=== PATIENT | female | born 1950 | race Caucasian/White ===

== ENCOUNTER 2017-04-20 10:28 | Outpatient (CLI) | payer MEDICARE | END 2017-04-20 10:29 | disposition home or self-care (01) | LOC: BICMAMMO 10:28 | PROVIDERS: ATTEND Internal Medicine | DX: Z12.31 Encounter for screening mammogram for malignant neoplasm of breast (principal); R92.1 Mammographic calcification found on diagnostic imaging of breast | CPT/HCPCS: 77063; 77067 ==

== ENCOUNTER 2018-02-21 13:20 | Observation (INO) | payer MEDICARE ==
[2018-02-21] MEDS ORDERED: Aspirin 325 MG TAB ONE (13:50)
[2018-02-21 14:04] LABS: #Basophils 0.1 thou/uL (0.0-0.2); #Eosinphils 0.2 thou/uL (0.0-0.7); #Lymphocytes 2.9 thou/uL (1.20-3.40); #Monocytes 0.6 thou/uL (0.11-0.59); %Basophils 0.8 % (0.0-1.0); %Eosinophils 1.4 % (0.0-10.0); %Lymphocytes 27.2 % (21.0-51.0); %Monocytes 5.5 % (0.0-10.0); %Neutrophils 65.1 % (42.0-75.0); Hemoglobin 13.4 g/dL (12.0-16.0); Mean Corpuscular HGB CONC 32.2 g/dL (32.0-36.0); Mean Corpuscular Hemoglobin 29.3 pg (27.0-31.0); Mean Platelet Volume 9.2 fL (7.4-10.4); Platelet Count 209 thou/uL (130-400); RBC Distribution Width 13.2 % (11.5-14.5); Red Blood Cell (RBC) Count 4.58 mill/uL (4.20-5.40); White Blood Cell (WBC) Count 10.7 thou/uL (4.8-10.8)
[2018-02-21 14:30] LABS: ALT (SGPT) 11 U/L (8-55); AST (SGOT) 13 U/L (5-34); Albumin 3.9 g/dL (3.4-4.8); Alkaline Phosphatase 107 U/L (40-150); Anion Gap 13 mmol/L (10-20); BUN (Urea Nitrogen) 16 mg/dL (9.8-20.1); CK (CPK) 20 U/L (29-168); Calc. Creatinine Clearance 0 mL/min (70-130); Calcium 10.5 mg/dL (7.8-10.44); Carbon Dioxide 25 mmol/L (23-31); Chloride 104 mmol/L (98-107); Estimated GFR-MDRD 51; Globulin 3.3 g/dL (2.4-3.5); Glucose 102 mg/dL (80-115); Potassium 3.9 mmol/L (3.5-5.1); Protein, Total 7.2 g/dL (6.0-8.3); Sodium 138 mmol/L (136-145)
--- NOTE | 2018-02-21 14:41 | RAD ---
CHEST ONE VIEW: HISTORY: Chest pain, which began at 12:00 p.m. COMPARISON: 04/26/2016 FINDINGS: Increased linear and interstitial markings noted bilaterally, particularly in the perihilar and lower lung zones. No cardiomegaly. No significant pleural effusion. No confluent pneumonia. Slightly p rominent left hilar region, probably related to rotation and pulmonary vasculature. IMPRESSION: 1. Mild vascular congestion. 2. No confluent pneumonia, overt edema, pleural effusion, cardiomegaly, or other significant acute p rocess. POS: OFF
[2018-02-21 17:14] LABS: Troponin I Less than 0.010 ng/mL (< 0.028)
[2018-02-21 18:37] VITALS: BMI 43.6
[2018-02-21] MEDS: Nitroglycerin 2% Ointment 1 INCH/1 GM Packet TOP SCH (19:28)
[2018-02-21 19:49] LABS: Troponin I Less than 0.010 ng/mL (< 0.028)
[2018-02-21] MEDS: Morphine IR Tab 15 MG TAB PO PRN (21:27)
[2018-02-21] MEDS: Gabapentin 300 MG CAP PO SCH (21:27)
--- NOTE | 2018-02-22 00:26 | HP ---
PRIMARY CARE PHYSICIAN: Dr. Fortune. PAIN MANAGEMENT: Dr. Wagner. ORTHOPEDIST: Dr. Jaramillo. CHIEF COMPLAINT: Chest pain. HISTORY OF PRESENT ILLNESS: Ms. Samuel is a very pleasant 67-year-old female who presented to the emergency room today. The patient evaluated in the emergency room for chest pain. This started at around noon. She said it lasted about an hour. Reports the pain had radiated to her back. Reports that she has chronic back pain and this particular chest pain made that pain worse. Reports some mild shortness of breath. Denies any diaphoresis. Denied any radiation. Reports that the pain was primarily on the left side of her chest. Denies any nausea or vomiting. Denies any abdominal pain, diarrhea, or constipation. Reports that the pain was relieved by nitroglycerin. Reports that she had a cardiac cath performed in 2012 in [place]. Reports that she had no evidence at that point of any coronary artery disease and no stents were placed. Reports that she may have had an echo at that time, but none since then. PAST MEDICAL HISTORY: Includes hypertension, diabetes, sarcoidosis, cataracts, plantar fasciitis. The patient was admitted to the observation unit for further management. PAST SURGICAL HISTORY: Tonsillectomy, cholecystectomy, hysterectomy, right wrist surgery x3, ankle surgery, rotator cuff surgery, sinus surgery. She also reports that she saw Dr. Jaramillo this week with a discussion about possible knee replacement. PSYCHIATRIC HISTORY: Reports depression and anxiety. SOCIAL HISTORY: Reports that she has no alcohol use, drug use. No smoking history. FAMILY HISTORY: Reports family of cardiac issues. REVIEW OF SYSTEMS: CONSTITUTIONAL: The patient denies chills, fatigue, fever, or lethargy. HEENT: Eyes; denies any eye pain or vision changes. ENT; denies sinus pain, sore throat. CARDIOVASCULAR: Reports chest pain. Denies palpitations. Denies diaphoresis. Denies dyspnea on exertion. RESPIRATORY: Denies cough. Reported some mild shortness of breath with the chest pain. Reports it was hard to take a deep breath, otherwise negative. GASTROINTESTINAL: Denies any abdominal pain. Reported some nausea earlier that has resolved. Denies any vomiting, diarrhea, or constipation. GENITOURINARY: Denies any increased frequency, dysuria. MUSCULOSKELETAL: She reports chronic back pain. She sees Dr. Wagner for injections and pain medications. Denies any recent falls or injuries. Denies any changes to the back pain. SKIN: Denies induration. Denies rash. Denies skin changes. NEUROLOGIC: Denies any confusion, dizziness, focal weakness, sensory changes. PHYSICAL EXAMINATION: VITAL SIGNS: Blood pressure 147/76, pulse is 73, respirations 16, temperature 97.7, pO2 of 95% on room air. CONSTITUTIONAL: The patient appears nontoxic. HEENT: Head is atraumatic and normocephalic. Eyes; pupils are equally round and reactive to light. Sclerae is normal. ENT; mouth exam is normal. Mucous membranes are moist. NECK: Trachea is midline. Normal range of motion. No JVD. RESPIRATORY/CHEST: Breath sounds are normal. Chest expansion is equal. CARDIOVASCULAR: Heart rate is regular rate and rhythm. Heart sounds are normal S1, S2. ABDOMEN: Nontender. Bowel sounds are heard. BACK: Normal inspection. Normal range of motion. Diffuse tenderness. No CVA tenderness. EXTREMITIES: Upper extremity, normal range of motion. Motor strength is normal. Sensation intact. Radial pulses equal bilaterally. Lower extremity, normal inspection. Normal range of motion. Motor strength is normal. Sensation intact. Pedal pulses normal bilaterally. No edema is noted. NEUROLOGIC: The patient is oriented to person, place, and time. Speech is normal. Memory is normal. Cranial nerves 2 through 12 are grossly intact. No focal sensory or motor deficits are noted. SKIN: Warm, dry, and normal in color. ALLERGIES: EXTENSIVE; THEY INCLUDE PENICILLINS, CEPHALOSPORINS, IODINE, FLUOROQUINOLONES, SULFA, MENTHOL, MERCURY. CURRENT MEDICATIONS: Include; 1. Gabapentin 600 mg 3 times a day. 2. Morphine 30 mg 3 times a day for chronic pain. 3. Clonazepam 0.5 mg 1 tab t.i.d. as needed. EKG while in the ER was normal sinus rhythm, beats per minute 73, no ectopics. Possible septal infarct, age undetermined. LABS AND IMAGING: Chest x-ray shows mild vascular congestion. No confluent pneumonia or edema, pleural effusion, cardiomegaly, or other significant acute process. CK is 20. Sodium 138, potassium 3.9, chloride 104, gap is 13, BUN is 16, creatinine 1.08, estimated GFR is 51, glucose is 102, calcium 10.5. Liver enzymes are unremarkable. First troponin is undetectable at 0.010. White blood cell count is 10.7, hemoglobin 13.4, hematocrit 41.7, platelet count is 209. ASSESSMENT AND PLAN: 1. Chest pain. We will order serial troponins, stress test. 2. Chronic pain. We will continue home medications. Hospital course will be dependent on clinical findings. Job ID: [id number]
[2018-02-22] MEDS: Nitroglycerin 2% Ointment 1 INCH/1 GM Packet TOP SCH (00:27)
[2018-02-22] MEDS: Gabapentin 300 MG CAP PO SCH ×2 (06:00→12:43)
[2018-02-22] MEDS: Morphine IR Tab 15 MG TAB PO PRN (07:40)
[2018-02-22] MEDS ORDERED: Prevnar 13-Val Conj/PF 0.5 ML SYRINGE IM ONE (09:00)
[2018-02-22] MEDS ORDERED: Aspirin 81 mg Enteric Coated Tablet PO SCH (09:00)
[2018-02-22 12:34] VITALS: BP 137/72; TEMP 98.4
--- NOTE | 2018-02-22 13:49 | PDOC.EVN ---
Event Note - Event Note Event Note: patient seen, chart reviewed, discussed with Rohit ANSARI, agree with management
--- NOTE | 2018-02-22 14:13 | NM ---
NUCLEAR MEDICINE CARDIAC SPECT WITH WALL MOTION AND EJECTION FRACTION STRESS ONLY: HISTORY: Chest pain. Hypertension. Diabetes. Family history of coronary artery disease. TECHNIQUE: The patient was injected with 29.3 millicuries technetium 99m sestamibi intravenously for stress only views. FINDINGS: Multiple SPECT images in the short axis, vertical long axis, and horizontal long axis demonstrate no scan evidence for infarct or ischemia. LHR 0.28. EDV 102 mL. Ejection fraction 67%. MYOCARDIAL PERFUSION WALL MOTION: Wall motion is normal. IMPRESSION: Unremarkable stress only cardiac SPECT with ejection fraction and wall motion. POS: [facility]
--- NOTE | 2018-02-23 14:32 | EKG ---
Test Reason : Blood Pressure : / mmHG Vent. Rate : 073 BPM Atrial Rate : 227 BPM P-R Int : 000 ms QRS Dur : 080 ms QT Int : 390 ms P-R-T Axes : 000 024 -38 degrees QTc Int : 429 ms Normal sinus rhythm Septal infarct , age undetermined Abnormal ECG Confirmed by GERMAN PEREZ, JESUSITA Abebe ([id number]), marketing editor GOVIND JENKINS ([id number]) on 02/23/2018 2:32:37 PM Referred By: Confirmed By:JESUSITA PORTER MD
== END 2018-02-22 15:19 | disposition home or self-care (01) ==
LOC: ERS 13:20 → ERHOLD 15:07 → 2SW 17:35 → UNDODISOB 18:00
PROVIDERS: ADMIT Internal Medicine; ATTEND Internal Medicine
DX: R07.9 Chest pain, unspecified (principal); G89.29 Other chronic pain; M54.9 Dorsalgia, unspecified; I10 Essential (primary) hypertension; F32.9 Major depressive disorder, single episode, unspecified; F41.9 Anxiety disorder, unspecified; Z88.0 Allergy status to penicillin; Z88.1 Allergy status to other antibiotic agents; Z88.2 Allergy status to sulfonamides; Z91.041 Radiographic dye allergy status; Z91.048 Other nonmedicinal substance allergy status; Z79.82 Long term (current) use of aspirin; Z79.891 Long term (current) use of opiate analgesic; Z79.899 Other long term (current) drug therapy
CPT/HCPCS: 71045; 78452; 80053; 82550; 82962 ×2; 83880; 84484 ×2; 85025; 93005; 93017; 99285; A9500; G0378 ×2; 36415; 36416; J0153

== ENCOUNTER 2018-03-11 04:30 | Inpatient (IN) | payer MEDICARE ==
[2018-03-11 05:19] LABS: #Eosinphils 0.1 thou/uL (0.0-0.7); #Lymphocytes 1.5 thou/uL (1.20-3.40); #Monocytes 0.5 thou/uL (0.11-0.59); #Neutrophils 7.1 thou/uL (1.40-6.50); %Basophils 0.5 % (0.0-1.0); %Eosinophils 0.7 % (0.0-10.0); %Lymphocytes 16.2 % (21.0-51.0); %Monocytes 5.5 % (0.0-10.0); %Neutrophils 77.1 % (42.0-75.0); Hemoglobin 12.5 g/dL (12.0-16.0); Mean Corpuscular HGB CONC 31.7 g/dL (32.0-36.0); Mean Corpuscular Volume 94.7 fL (78.0-98.0); Mean Platelet Volume 9.1 fL (7.4-10.4); Platelet Count 304 thou/uL (130-400); RBC Distribution Width 13.5 % (11.5-14.5); Red Blood Cell (RBC) Count 4.16 mill/uL (4.20-5.40); White Blood Cell (WBC) Count 9.2 thou/uL (4.8-10.8)
[2018-03-11 05:40] LABS: ALT (SGPT) 19 U/L (8-55); AST (SGOT) 21 U/L (5-34); Albumin 3.8 g/dL (3.4-4.8); Alkaline Phosphatase 91 U/L (40-150); Anion Gap 12 mmol/L (10-20); BUN (Urea Nitrogen) 23 mg/dL (9.8-20.1); Bilirubin, Total 0.8 mg/dL (0.2-1.2); Calc. Creatinine Clearance 0 mL/min (70-130); Calcium 11.1 mg/dL (7.8-10.44); Carbon Dioxide 27 mmol/L (23-31); Chloride 105 mmol/L (98-107); Estimated GFR-MDRD 13; Globulin 3.5 g/dL (2.4-3.5); Glucose 117 mg/dL (80-115); Lipase 7 U/L (8-78); Potassium 4.4 mmol/L (3.5-5.1); Protein, Total 7.3 g/dL (6.0-8.3); Sodium 140 mmol/L (136-145)
[2018-03-11 06:10] LABS: Bilirubin Moderate (Negative); Blood, Urine Trace (Negative); Clarity Cloudy (Clear); Glucose, Urine (Dipstick) Negative (Negative); Leukocyte Trace (Negative); Nitrite Negative (Negative); Protein, Urine (Dipstick) Trace mg/dL (Neg-Trace); pH, Urine 5.5 (5.0-9.0)
[2018-03-11 06:11] LABS: Specific Gravity, Urine 1.019 (1.002-1.036)
[2018-03-11 06:13] LABS: Bacteria/HPF None Seen HPF (None Seen); Crystals/HPF None Seen HPF (Negative); Hyaline Casts/LPF NONE SEEN LPF (0-3 Hyaline); Other Casts/LPF None Seen LPF (0-3 Hyaline); Oval Fat Bodies/HPF None Seen HPF (None Seen); RBC/HPF 0-3 HPF (0-3); Renal Epithelial None Seen HPF (0-3); Sperm/HPF None Seen HPF (None Seen); Squamous Epithelial 0-3 HPF (0-3); Transitional Epithelial NONE SEEN HPF (0-3); Trichomonas/HPF None Seen HPF (None Seen); Yeast-All Forms None Seen HPF (None Seen)
[2018-03-11 06:14] LABS: Other Microscopic Description Less than 2 mL rec'd
[2018-03-11 06:39] LABS: Sodium, Urine 43 mmol/L (Not Available); Urea Nitrogen, Random Urine 151 mg/dl
[2018-03-11] MEDS ORDERED: metroNIDAZOLE 500 MG/100 ML BAG ONE (06:59)
--- NOTE | 2018-03-11 08:24 | RAD ---
RADIOGRAPH CHEST 1 VIEW: Date: 03/11/2018. Time: 5:17 a.m. HISTORY: A 67-year-old female with cough. COMPARISON: 02/21/2018. FINDINGS: Mild pulmonary venous engorgement. Diffusely prominent interstitial markings. Cardiomegaly. Ectasi a and tortuosity of the thoracic aorta. No consolidation. No pneumothorax. No effacement of latera l costophrenic angles. No interval change. IMPRESSION: 1. Cardiomegaly and pulmonary venous congestion. 2. No convincing evidence of pneumonia. 3. No interval change since 02/21/2018. JOSIE [] POS: [facility]
[2018-03-11] MEDS ORDERED: Guaifenesin DM 100-10/5 ML UDCUP PO PRN (11:43)
[2018-03-11] MEDS ORDERED: clonazePAM 0.5 MG TAB PO PRN (11:43)
[2018-03-11] MEDS: Morphine IR Tab 15 MG TAB PO SCH ×2 (13:38→21:52)
[2018-03-11] MEDS: Gabapentin 300 MG CAP PO SCH ×2 (15:06→20:12)
--- NOTE | 2018-03-11 15:12 | HP ---
REASON FOR ADMISSION: Acute kidney injury, moderate to severe dehydration. HISTORY OF PRESENTING ILLNESS: The patient gives history of having viral infection from last 10 days or so. She has been feeling better from last 2 days now. She says she has had usual myalgias, body aches, loss of appetite and had gone to see her primary care physician, Dr. Fortune and was told she had a viral infection, which is resolving. Day before on Monday, the patient developed diarrhea. She had three watery stools after drinking soup. Yesterday, she felt better in the afternoon and tried eating a pizza slice. She soon developed nausea, vomiting, and shaking. From then on, the patient has been feeling very uncomfortable and not feeling well. On arrival in the ER, the patient was found to have had a creatinine of 3. Currently, has no complaints of chest pain or palpitation. No complaints of any specific weakness in any of the extremities. MEDICATIONS: 1. Gabapentin 600 mg p.o. three times daily. 2. Morphine 30 mg p.o. three times daily for chronic back pain and sees Dr. Wagner for the same. 3. Clonazepam 0.5 mg as needed for restless legs/jumping legs per patient. 4. Lisinopril 10 mg p.o. daily. ALLERGIES: ALLERGIC TO CECLOR, CEPHALOSPORIN, IODINE, LEVAQUIN, MERCURY, OFLOXACIN, PENICILLIN, AND SULFA. PERSONAL HISTORY: The patient quit smoking 9 years ago, but has smoked for 17 years, a pack and a half. Does not abuse alcohol or drugs. FAMILY HISTORY: Mother at the age of 47 years, she has had history of lung cancer. Father of [place], he was 69 years, had a son who of [place] at the age of 40 years. The patient ambulates by herself, but uses cane due to severe osteoarthritis of both knees. PAST MEDICAL AND SURGICAL HISTORY: History of sarcoidosis with pulmonary involvement, hypertension, history of kidney stones, cataract surgery, plantar fasciitis, tonsillectomy, cholecystectomy, hysterectomy, oophorectomy, left wrist surgery x3, bilateral ankle surgery, right rotator cuff surgery, and sinus surgeries. CODE STATUS: Full. REVIEW OF SYSTEMS: CONSTITUTIONAL: Negative for weight loss or gain, ability to conduct usual activities. SKIN: Negative for rash, itching. EYES: Negative for double vision, pain. ENT/MOUTH: Negative for nose bleeding, neck stiffness, pain, tenderness. CARDIOVASCULAR: Negative for palpitations, dyspnea on exertion, orthopnea. RESPIRATORY: Negative for shortness of breath, wheezing, cough, hemoptysis, fever or night sweats. GASTROINTESTINAL: Negative for poor appetite, abdominal pain, heartburn, nausea , vomiting, constipation, or diarrhea. GENITOURINARY: Negative for urgency, frequency, dysuria, nocturia. MUSCULOSKELETAL: Negative for pain, swelling. NEUROLOGIC/PSYCHIATRIC: Negative for anxiety, depression. ALLERGY/IMMUNOLOGIC: Negative for skin rash, bleeding tendency. PHYSICAL EXAMINATION: GENERAL: The patient is a 67-year-old female, who is currently not in any acute distress. VITAL SIGNS: Blood pressure 116/72, pulse 88 per minute, respiratory rate 20 per minute, temperature 98.6 degrees Fahrenheit, saturating 94% on room air. NECK: Supple. No elevated JVD. HEENT: Eyes; extraocular muscles intact. Pupils reacting to light. Oral cavity, mucous membranes are dry. No exudates or congestion. CARDIOVASCULAR SYSTEM: S1 and S2 heard. Regular rhythm. RESPIRATORY SYSTEM: Air entry 2+ bilateral. No rales or rhonchi. ABDOMEN: Soft. Bowel sounds heard. No tenderness, rigidity, or guarding. EXTREMITIES: No peripheral edema or calf tenderness. VASCULAR SYSTEM: Peripheral pulses 2+ bilateral. No ischemic ulcerations or gangrene. CENTRAL NERVOUS SYSTEM: No gross focal deficits noted. The patient is alert, awake, and oriented well. PSYCHIATRIC SYSTEM: The patient's mood is euthymic. No hallucinations or delusions. LABORATORY DATA: White count of 9, H and H of 12 and 39, platelet count is 304 , MCV is 94, with 77% neutrophils. BUN 23, creatinine 3.5, serum bicarb 27. Serum calcium is 11. Albumin is 3.8. Liver enzymes are within normal limits. First set of troponin is negative. Lipase is 7. Influenza A and B antigens are negative. Chest x-ray done shows cardiomegaly with mild pulmonary vascular congestion. CLINICAL IMPRESSION AND PLAN: The patient will be admitted to medical floor for acute kidney injury with moderate to severe dehydration. She will be on lactated Ringer at 75 mL per hour. The patient has had viral illness in addition to which developed diarrheal illness from last 2 days. We will obtain stool studies. Her CT abdomen and pelvis has been done and official report is currently pending. We will continue her home dose of morphine, which she has been taking chronically for low back pain and also clonazepam for restless legs along with aspirin as before. We will hold off lisinopril for now. Nephrology consultation with Dr. Becker will be obtained. We will follow up on the CT abdomen results. Labs will be obtained in the morning to see the trend of her creatinine. PT evaluation will be requested to see if she can ambulate. She has severe osteoarthritis in the knees, which is limiting her mobility and we will see how much she can do tomorrow with Physical therapy. Job ID: [id number] MTDD
--- NOTE | 2018-03-11 15:40 | CT ---
PRELIMINARY REPORT/[facility]/EMERGENTY AFTER-HOURS PROCEDURE CT Abdomen and Pelvis Without Contrast EXAM DATE/TIME: 03/11/2018 6:15 AM CLINICAL HISTORY: 67 years old, female; Pain and signs and symptoms; Nausea and vomiting; Abdominal pain; Generalized; Prior surgery; Patient HX: Er 2; 67f presents for evaluation of n/v/d and weakness for 10 days, which was when she seen last in the er and discharged with uri. Patient says she has had 3 episodes of vomiting and cannot keep anything down. Patient reports feeling generalized weakness/daniel iness. Abdominal pain (generalized). Surgical HX of gallbladder removal, hysterectomy, oophorectomy TECHNIQUE: Axial computed tomography images of the abdomen and pelvis without contrast. COMPARISON: No relevant prior studies available. FINDINGS: Lower thorax: There is subpleural atelectasis of the dependent portions of the lungs. A small hiatal hernia is present. ABDOMEN: Liver: The liver is within normal limits for this noncontrast study. Gallbladder and bile ducts: No gallbladder is identified. There is a mild, expected degree of intrahe patic and common bile duct dilation. Pancreas: There is fatty infiltration of the pancreas. Spleen: The spleen is normal. Adrenals: The adrenal glands are normal. Kidneys and ureters: There are bilateral renal pelvic calcifications without obstruction. There is no evidence of hydronephrosis. Stomach and bowel: The duodenum is unremarkable. Moderate diverticulosis is present in the sigmoid an d descending colon. There is thickening of the descending and sigmoid colon probably due to under dis tention or possibly colitis/diverticulitis in the appropriate clinical setting. Appendix: No evidence of appendicitis. PELVIS: Bladder: The bladder is decompressed but otherwise normal. Reproductive: The uterus is not visualized, and may be atrophic or surgically absent. ABDOMEN and PELVIS: Intraperitoneal space: Normal. No free air. No significant fluid collection. Bones/joints: No acute fracture. No dislocation. Soft tissues: Unremarkable. Vasculature: The vasculature demonstrates diffuse mild atherosclerotic calcification. No abdominal ao rtic aneurysm. Lymph nodes: Normal. No enlarged lymph nodes. IMPRESSION: 1. A small hiatal hernia is present. 2. There is thickening of the descending and sigmoid colon probably due to underdistention or possibl y colitis/diverticulitis in the appropriate clinical setting. Thank you for allowing us to participate in the care of your patient. Dictated and Authenticated by: Juan Rasmussen MD 03/11/2018 6:41 AM Central Time ([place] & [place]) FINAL REPORT CT ABDOMEN AND PELVIS WITHOUT CONTRAST: I agree with the preliminary report given by Dr. Juan Rasmussen of [facility]. POS: [facility]
[2018-03-11 15:59] VITALS: BMI 44.2
[2018-03-11] MEDS: Lactated Ringer's 1,000 ML IV SCH (16:44)
[2018-03-11] MEDS: Famotidine 20 MG TAB PO SCH (20:12)
--- NOTE | 2018-03-11 21:35 | CON ---
DATE OF CONSULTATION: 03/11/2018 NEPHROLOGY CONSULTATION NOTE: REASON FOR CONSULTATION: Acute kidney injury. CONSULTING DOCTOR: Robert Sahni MD REASON FOR ADMISSION: Weakness. HISTORY OF PRESENT ILLNESS: This is a 67-year-old female with history of hypertension, diabetes, and sarcoidosis came to the hospital with above complaints. Nephrology consulted for acute kidney injury. The patient's baseline creatinine is around 1.08 and was found to have creatinine of 3.5. The patient was having vomiting and GI upset for last few days. PAST MEDICAL HISTORY: Positive for hypertension, diabetes, sarcoid, and CKD. PAST SURGICAL HISTORY: Tonsillectomy, cholecystectomy, hysterectomy, , rotator cuff surgery, and sinus surgery. HOME MEDICATIONS: 1. Clonazepam. 2. Morphine. 3. Neurontin. 4. Aspirin. ALLERGIES: TO CEFACLOR, LEVOFLOXACIN, PENICILLIN, AND SULFA. SOCIAL HISTORY: No smoking, alcohol, or illicit drug use. FAMILY HISTORY: No history of any kidney disease. REVIEW OF SYSTEMS: CONSTITUTIONAL: Negative for weight loss or gain, ability to conduct usual activities. SKIN: Negative for rash, itching. EYES: Negative for double vision, pain. ENT/MOUTH: Negative for nose bleeding, neck stiffness, pain, tenderness. CARDIOVASCULAR: Negative for palpitations, dyspnea on exertion, orthopnea. RESPIRATORY: Negative for shortness of breath, wheezing, cough, hemoptysis, fever or night sweats. GASTROINTESTINAL: Negative for poor appetite, abdominal pain, heartburn, nausea, vomiting, constipation, or diarrhea. GENITOURINARY: Negative for urgency, frequency, dysuria, nocturia. MUSCULOSKELETAL: Negative for pain, swelling. NEUROLOGIC/PSYCHIATRIC: Negative for anxiety, depression. ALLERGY/IMMUNOLOGIC: Negative for skin rash, bleeding tendency. PHYSICAL EXAMINATION: GENERAL: Reveals an obese female, no apparent distress. VITAL SIGNS: Temperature , and blood pressure 132/78. HEENT: Atraumatic, normocephalic. Oral mucosa is moist NECK: Supple. CARDIOVASCULAR: S1, S2 heard. Rate and rhythm regular. RESPIRATORY: Clear to auscultation. MUSCULOSKELETAL: 1+ edema. DERMATOLOGIC: No skin rash. NEUROLOGIC: Alert and awake. PSYCHIATRIC: Normal mood and affect. LABORATORY DATA: Potassium is 4.4, BUN is 23, and creatinine is 3.5. ASSESSMENT/PLAN: 1. Acute kidney injury, most likely volume depletion. Avoid nephrotoxins. Continue hydration. 2. Edema, controlled. 3. Hypertension, stable. 4. Obesity. Plan is to continue hydration and continue on dialysis as tolerated. We will follow. Thank you for consult. Job ID: [id number]
[2018-03-12] MEDS: Acetaminophen 325 MG TAB PO PRN ×2 (04:03→08:35)
[2018-03-12] MEDS: Lactated Ringer's 1,000 ML IV SCH (05:54)
[2018-03-12] MEDS: Gabapentin 300 MG CAP PO SCH ×3 (08:32→20:25)
[2018-03-12] MEDS: Aspirin 81 mg Enteric Coated Tablet PO SCH (08:32)
[2018-03-12] MEDS: Famotidine 20 MG TAB PO SCH ×2 (08:32→20:30)
[2018-03-12] MEDS ORDERED: Enoxaparin Sodium 30 MG/0.3 ML SYRINGE SC SCH (09:00)
[2018-03-12] MEDS ORDERED: Morphine ER 30 MG TAB PO SCH (09:00)
[2018-03-12 11:56] LABS: Actual Bicarbonate (HCO3a) 27.5 mEq/L (22-28); Analyzer IN Cardio ER; Base Excess (BEa) -1.2 mEq/L (-2.0 to +3.0); Calcium, Ionized 1.34 mmol/L (1.12-1.30); Carboxyhemoglobin (COHb) 0.8 gm% (0.0-3.0); Hemoglobin (Hb) 12.2 g/dL (12.0-16.0); O2 Tension (PaO2) 67.4 mmHg (> 80.0); Potassium - ABG Lab 4.88 mmol/L (3.70-5.30)
[2018-03-12 11:57] LABS: CO2 Tension 66.5 mmHg (35.0-45.0); Puncture Site RBA; pH, Arterial 7.24 (7.35-7.45)
--- NOTE | 2018-03-12 12:32 | PDOC.PN ---
- Subjective Encounter Start Date: 03/12/18 Encounter Start Time: 11:00 Subjective: lethargic but oriented -: no chest pain or sob - Objective Resuscitation Status - Order Detail: 03/11/18 11:40 Resuscitation Status Routine Resuscitation Status: FULL: Full Resuscitation MAR Reviewed: Yes Vital Signs & Weight: Vital Signs (12 hours) Temp Pulse Resp BP Pulse Ox 03/12/18 11:01 98.9 F 84 20 117/66 92 L 03/12/18 07:22 101.6 F H 76 20 114/68 94 L 03/12/18 04:54 100.8 F H 03/12/18 04:02 102.5 F H 75 16 112/68 96 03/12/18 00:54 99.1 F 72 18 100/61 92 L Weight Weight 265 lb 14.04 oz I&O: 03/11/18 03/12/18 03/13/18 06:59 06:59 06:59 Intake Total 1525 120 Balance 1525 120 Result Diagrams: 03/11/18 05:04 03/11/18 05:04 Additional Labs: Accuchecks 03/12/18 03/12/18 03/11/18 11:04 03:59 20:19 POC Glucose 107 91 98 Phys Exam - Physical Examination HEENT: PERRLA, sclera anicteric dry mucosa Neck: no JVD, supple Respiratory: no wheezing, no rales Cardiovascular: RRR, no significant murmur Gastrointestinal: soft, non-tender, positive bowel sounds Musculoskeletal: no edema, pulses present Neurological: non-focal, moves all 4 limbs Dx/Plan (1) EUGENE (acute kidney injury) Code(s): N17.9 - ACUTE KIDNEY FAILURE, UNSPECIFIED Status: Acute (2) DM type 2 (diabetes mellitus, type 2) Status: Chronic Qualifiers: Diabetes mellitus audio video mechanic insulin use: without audio video mechanic use Diabetes mellitus complication status: with unspecified complications Qualified Code(s) : E11.8 - Type 2 diabetes mellitus with unspecified complications (3) Chronic pain Code(s): G89.29 - OTHER CHRONIC PAIN Status: Chronic Qualifiers: Chronic pain type: chronic pain syndrome (4) Falls frequently Code(s): R29.6 - REPEATED FALLS Status: Chronic (5) Morbid obesity with BMI of 40.0-44.9, adult Code(s): E66.01 - MORBID (SEVERE) OBESITY DUE TO EXCESS CALORIES; Z68.41 - BODY MASS INDEX (BMI) 40.0-44.9, ADULT Status: Chronic (6) Acute respiratory failure with hypoxia and hypercapnia Code(s): J96.01 - ACUTE RESPIRATORY FAILURE WITH HYPOXIA; J96.02 - ACUTE RESPIRATORY FAILURE WITH HYPERCAPNIA Status: Acute - Plan has resp acidosis, multifactorial including narcotics, obesity, ?soifya -: reduce ms contin to bid, gabapentin to 300 tid -: fadi lou, she has no formal diagnosis of sofiya -: gentle iv hydration, am labs have not been done yet -: continue asp * . Review of Systems - Medications/Allergies Allergies/Adverse Reactions: Allergies Allergy/AdvReac Type Severity Reaction Status Date / Time cefaclor [From Ceclor] Allergy Verified 02/21/18 18:31 Cephalosporins Allergy Verified 02/21/18 18:31 iodine Allergy Verified 02/21/18 18:31 levofloxacin [From Levaquin] Allergy Verified 02/21/18 18:31 ofloxacin [From Floxin] Allergy Verified 02/21/18 18:31 Penicillins Allergy Verified 02/21/18 18:31 Sulfa (Sulfonamide Allergy Verified 02/21/18 18:31 Antibiotics) sulfamethoxazole Allergy Verified 02/21/18 18:31 [From Bactrim] trimethoprim [From Bactrim] Allergy Verified 02/21/18 18:31 Medications: Current Medications Acetaminophen (Tylenol) 650 mg PO Q4H PRN PRN Reason: Headache/Fever/Mild Pain (1-3) Last Admin: 03/12/18 08:35 Dose: 650 mg Aspirin (Ecotrin) 81 mg PO DAILY [facility] Last Admin: 03/12/18 08:32 Dose: 81 mg Enoxaparin Sodium (Lovenox) 30 mg SC 0900 [facility] Last Admin: 03/12/18 08:36 Dose: 30 mg Famotidine (Pepcid) 20 mg PO BID [facility] Last Admin: 03/12/18 08:32 Dose: 20 mg Gabapentin (Neurontin) 300 mg PO TID [facility] Guaifenesin/Dextromethorphan (Robitussin Dm) 15 ml PO Q4H PRN PRN Reason: Cough Lactated Ringer's (Lactated Ringer's) 1,000 mls @ 75 mls/hr IV .[id number] [facility] Last Admin: 03/12/18 05:54 Dose: 1,000 mls Morphine Sulfate (Ms Contin) 30 mg PO Q12HR MARIANNE
[2018-03-12 12:50] LABS: #Basophils 0.1 thou/uL (0.0-0.2); #Eosinphils 0.1 thou/uL (0.0-0.7); #Lymphocytes 1.8 thou/uL (1.20-3.40); #Monocytes 0.5 thou/uL (0.11-0.59); #Neutrophils 8.3 thou/uL (1.40-6.50); %Basophils 0.5 % (0.0-1.0); %Eosinophils 0.8 % (0.0-10.0); %Lymphocytes 16.5 % (21.0-51.0); %Monocytes 4.4 % (0.0-10.0); %Neutrophils 77.8 % (42.0-75.0); Hemoglobin 11.7 g/dL (12.0-16.0); Mean Corpuscular HGB CONC 30.7 g/dL (32.0-36.0); Mean Corpuscular Hemoglobin 29.5 pg (27.0-31.0); Mean Platelet Volume 9.6 fL (7.4-10.4); Platelet Count 256 thou/uL (130-400); RBC Distribution Width 13.6 % (11.5-14.5); Red Blood Cell (RBC) Count 3.96 mill/uL (4.20-5.40); White Blood Cell (WBC) Count 10.7 thou/uL (4.8-10.8)
[2018-03-12 12:51] LABS: Albumin 3.3 g/dL (3.4-4.8); Anion Gap 17 mmol/L (10-20); BUN (Urea Nitrogen) 22 mg/dL (9.8-20.1); BUN/Creatinine Ratio 8.84; Calc. Creatinine Clearance 42 mL/min (70-130); Calcium 10.2 mg/dL (7.8-10.44); Carbon Dioxide 18 mmol/L (23-31); Chloride 110 mmol/L (98-107); Estimated GFR-MDRD 19; Glucose 107 mg/dL (80-115); Potassium 5.4 mmol/L (3.5-5.1); Sodium 140 mmol/L (136-145)
[2018-03-12 13:31] LABS: Anion Gap 12 mmol/L (10-20); BUN (Urea Nitrogen) 32 mg/dL (9.8-20.1); Calc. Creatinine Clearance 118 mL/min (70-130); Calcium 8.9 mg/dL (7.8-10.44); Carbon Dioxide 22 mmol/L (23-31); Chloride 107 mmol/L (98-107); Estimated GFR-MDRD 63; Glucose 100 mg/dL (80-115); Potassium 4.2 mmol/L (3.5-5.1); Sodium 137 mmol/L (136-145)
--- NOTE | 2018-03-12 14:26 | PRG ---
DATE OF SERVICE: 03/12/2018 SUBJECTIVE: A 67-year-old female, being seen for acute kidney injury. The patient denied nausea, vomiting, or chest pain. OBJECTIVE: CONSTITUTIONAL: The patient is awake and alert. VITAL SIGNS: Afebrile. Pulse 75, breathing 16, blood pressure was 117/66. GENERAL APPEARANCE AND MENTAL STATUS: Fair. HEAD/NECK: Normocephalic. Atraumatic. EYES: EOMI. No deformity. EARS: Clear. No ulcers. NOSE: Intact. No lesions. MOUTH: Clear. No discharge. THROAT: Clear. No exudate. LUNGS: Clear. No crackles. CARDIAC: S1, S2. No rub. ABDOMEN: Benign. Bowel sounds positive. GENITALIA/RECTUM: Pablo absent. BACK/EXTREMITIES: Edema 0+. NEUROLOGICAL: Alert and motor intact. SKIN: LYMPHATICS: LABORATORY DATA: Labs showed creatinine is 1. ASSESSMENT: 1. Stage 2 chronic kidney disease, stable. 2. Hypertension, stable. 3. Anemia, stable. 4. Hyperkalemia, resolved. 5. Medication based on GFR appropriate. I will sign off on this patient. Please reconsult as needed. Job ID: [id number]
[2018-03-12] MEDS: Sodium Chloride 0.9% 1,000 ML IV SCH (15:58)
[2018-03-12 16:40] LABS: Anion Gap 10 mmol/L (10-20); BUN (Urea Nitrogen) 22 mg/dL (9.8-20.1); Calc. Creatinine Clearance 43 mL/min (70-130); Calcium 10.3 mg/dL (7.8-10.44); Carbon Dioxide 26 mmol/L (23-31); Chloride 108 mmol/L (98-107); Estimated GFR-MDRD 20; Glucose 102 mg/dL (80-115); Potassium 5.2 mmol/L (3.5-5.1); Sodium 139 mmol/L (136-145)
[2018-03-12] MEDS: Morphine ER 30 MG TAB PO SCH (20:25)
[2018-03-13] MEDS: Sodium Chloride 0.9% 1,000 ML IV SCH (05:11)
[2018-03-13 09:15] LABS: Albumin 3.2 g/dL (3.4-4.8); Anion Gap 14 mmol/L (10-20); BUN (Urea Nitrogen) 22 mg/dL (9.8-20.1); BUN/Creatinine Ratio 10.78; Calc. Creatinine Clearance 52 mL/min (70-130); Calcium 10.3 mg/dL (7.8-10.44); Carbon Dioxide 21 mmol/L (23-31); Chloride 110 mmol/L (98-107); Estimated GFR-MDRD 24; Glucose 87 mg/dL (80-115); Phosphorus 3.5 mg/dL (2.3-4.7); Potassium 5.3 mmol/L (3.5-5.1); Sodium 140 mmol/L (136-145)
[2018-03-13] MEDS: Gabapentin 300 MG CAP PO SCH ×3 (10:42→21:57)
[2018-03-13] MEDS: Aspirin 81 mg Enteric Coated Tablet PO SCH (10:42)
[2018-03-13] MEDS: Morphine ER 30 MG TAB PO SCH ×2 (10:43→21:56)
[2018-03-13] MEDS: Famotidine 20 MG TAB PO SCH ×2 (10:43→21:57)
--- NOTE | 2018-03-13 11:01 | PDOC.PN ---
- Subjective Encounter Start Date: 03/13/18 Encounter Start Time: 07:15 Subjective: awakens easily, is a bit lethargic - Objective Resuscitation Status - Order Detail: 03/11/18 11:40 Resuscitation Status Routine Resuscitation Status: FULL: Full Resuscitation MAR Reviewed: Yes Vital Signs & Weight: Vital Signs (12 hours) Temp Pulse Resp BP BP Pulse Ox 03/13/18 07:00 98.7 F 70 20 114/76 90 L 03/13/18 05:00 98.6 F 70 17 143/70 H 96 03/13/18 00:33 97.7 F 80 20 115/62 92 L Weight Admit Weight 265 lb 13.92 oz Weight 265 lb 14.04 oz I&O: 03/12/18 03/13/18 03/14/18 06:59 06:59 06:59 Intake Total 1525 2550 Balance 1525 2550 Result Diagrams: 03/12/18 11:55 03/13/18 08:34 Additional Labs: Accuchecks 03/13/18 03/12/18 03/12/18 05:13 19:21 16:55 POC Glucose 74 91 98 03/12/18 11:04 POC Glucose 107 Phys Exam - Physical Examination HEENT: PERRLA, moist MMs Neck: no JVD, supple Respiratory: no wheezing, no rales Cardiovascular: RRR, no significant murmur Gastrointestinal: soft, non-tender, positive bowel sounds Musculoskeletal: no edema, pulses present Neurological: non-focal, moves all 4 limbs Dx/Plan (1) EUGENE (acute kidney injury) Code(s): N17.9 - ACUTE KIDNEY FAILURE, UNSPECIFIED Status: Acute (2) DM type 2 (diabetes mellitus, type 2) Status: Chronic Qualifiers: 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: without fixed wing aircraft crew chief use Diabetes mellitus complication status: with unspecified complications Qualified Code(s) : E11.8 - Type 2 diabetes mellitus with unspecified complications (3) Chronic pain Code(s): G89.29 - OTHER CHRONIC PAIN Status: Chronic Qualifiers: Chronic pain type: chronic pain syndrome (4) Falls frequently Code(s): R29.6 - REPEATED FALLS Status: Chronic (5) Morbid obesity with BMI of 40.0-44.9, adult Code(s): E66.01 - MORBID (SEVERE) OBESITY DUE TO EXCESS CALORIES; Z68.41 - BODY MASS INDEX (BMI) 40.0-44.9, ADULT Status: Chronic (6) Acute respiratory failure with hypoxia and hypercapnia Code(s): J96.01 - ACUTE RESPIRATORY FAILURE WITH HYPOXIA; J96.02 - ACUTE RESPIRATORY FAILURE WITH HYPERCAPNIA Status: Acute Comment: likely due to sofiya - Plan creatinine is slowly trending down -: will need formal sleep study -: add macrobid for uti, culture is contaminated -: nebs, oob to chair and mobilize -: will likely need rehab * . Review of Systems - Medications/Allergies Allergies/Adverse Reactions: Allergies Allergy/AdvReac Type Severity Reaction Status Date / Time cefaclor [From Ceclor] Allergy Verified 02/21/18 18:31 Cephalosporins Allergy Verified 02/21/18 18:31 iodine Allergy Verified 02/21/18 18:31 levofloxacin [From Levaquin] Allergy Verified 02/21/18 18:31 ofloxacin [From Floxin] Allergy Verified 02/21/18 18:31 Penicillins Allergy Verified 02/21/18 18:31 Sulfa (Sulfonamide Allergy Verified 02/21/18 18:31 Antibiotics) sulfamethoxazole Allergy Verified 02/21/18 18:31 [From Bactrim] trimethoprim [From Bactrim] Allergy Verified 02/21/18 18:31 Medications: Current Medications Acetaminophen (Tylenol) 650 mg PO Q4H PRN PRN Reason: Headache/Fever/Mild Pain (1-3) Last Admin: 03/12/18 08:35 Dose: 650 mg Albuterol/Ipratropium (Duoneb) 3 ml NEB [id number] [facility] Aspirin (Ecotrin) 81 mg PO DAILY [facility] Last Admin: 03/13/18 10:42 Dose: 81 mg Famotidine (Pepcid) 20 mg PO BID [facility] Last Admin: 03/13/18 10:43 Dose: 20 mg Gabapentin (Neurontin) 300 mg PO TID [facility] Last Admin: 03/13/18 10:42 Dose: 300 mg Guaifenesin/Dextromethorphan (Robitussin Dm) 15 ml PO Q4H PRN PRN Reason: Cough Morphine Sulfate (Ms Contin) 30 mg PO Q12HR [facility] Last Admin: 03/13/18 10:43 Dose: 30 mg Nitrofurantoin Macrocrystals (Macrobid) 100 mg PO BID [facility] Sodium Chloride (Flush - Normal Saline) 10 ml IVF Q12HR [facility] Last Admin: 03/13/18 10:43 Dose: Not Given Sodium Chloride (Flush - Normal Saline) 10 ml IVF PRN PRN PRN Reason: Saline Flush Sodium Polystyrene Sulfonate (Kayexelate Oral Susp 15 Gm/60 Ml) 30 gm PO ONE [facility] Stop: 03/13/18 12:00
--- NOTE | 2018-03-13 11:41 | PRG ---
DATE OF SERVICE: 03/13/2018 SUBJECTIVE: A 67-year-old female, being seen for acute kidney injury. The patient denied nausea, vomiting, or chest pain. OBJECTIVE: CONSTITUTIONAL: Awake, alert, in no acute distress. VITAL SIGNS: Afebrile, pulse 80, breathing 16, blood pressure 114/76. GENERAL APPEARANCE AND MENTAL STATUS: Fair. HEAD/NECK: Normocephalic. Atraumatic. EYES: EOMI. No deformity. EARS: Clear. No ulcers. NOSE: Intact. No lesions. MOUTH: Clear. No discharge. THROAT: Clear. No exudate. LUNGS: Clear. No crackles. CARDIAC: S1, S2. No rub. ABDOMEN: Benign. Bowel sounds positive. GENITALIA/RECTUM: Pablo absent. BACK/EXTREMITIES: Edema 0+. NEUROLOGICAL: Alert and motor intact. SKIN: LYMPHATICS: LABORATORY DATA: Lab showed hemoglobin 11.7 and creatinine 1.0. ASSESSMENT: 1. Acute kidney injury. 2. Hypertension, stable. 3. Metabolic acidosis, stable. 4. Hypokalemia. We will recommend giving Kayexalate and rechecking potassium. No indication for dialysis at this time. Job ID: [id number]
[2018-03-13 12:19] LABS: Anion Gap 10 mmol/L (10-20); BUN (Urea Nitrogen) 22 mg/dL (9.8-20.1); Calc. Creatinine Clearance 56 mL/min (70-130); Calcium 10.3 mg/dL (7.8-10.44); Carbon Dioxide 26 mmol/L (23-31); Chloride 110 mmol/L (98-107); Estimated GFR-MDRD 27; Glucose 93 mg/dL (80-115); Potassium 5.3 mmol/L (3.5-5.1); Sodium 141 mmol/L (136-145)
--- NOTE | 2018-03-13 12:28 | CT ---
CT BRAIN PERFORMED WITHOUT CONTRAST ENHANCEMENT: History: Altered mental status. CVA. FINDINGS: Ventricular and cisternal systems show fairly appropriate change. No signs of intracerebral hemorrhag e or extraaxial fluid collections. Changes of hyperostosis frontalis interna are noted. The mastoid a ir cells and visualized sinuses are clear. IMPRESSION: No acute intracranial abnormalities. POS: [facility]
[2018-03-13 18:14] LABS: Anion Gap 11 mmol/L (10-20); BUN (Urea Nitrogen) 22 mg/dL (9.8-20.1); Calc. Creatinine Clearance 59 mL/min (70-130); Calcium 9.8 mg/dL (7.8-10.44); Carbon Dioxide 25 mmol/L (23-31); Chloride 111 mmol/L (98-107); Estimated GFR-MDRD 28; Glucose 114 mg/dL (80-115); Potassium 4.9 mmol/L (3.5-5.1); Sodium 142 mmol/L (136-145)
[2018-03-13] MEDS ORDERED: Nitrofurantoin Monohyd/M-Cryst 100 MG CAP PO SCH (21:00)
[2018-03-14] MEDS ORDERED: clonazePAM 1 MG TAB PO PRN (07:09)
[2018-03-14 07:47] LABS: Albumin 2.9 g/dL (3.4-4.8); BUN (Urea Nitrogen) 21 mg/dL (9.8-20.1); BUN/Creatinine Ratio 15.11; Calc. Creatinine Clearance 76 mL/min (70-130); Calcium 9.7 mg/dL (7.8-10.44); Carbon Dioxide 25 mmol/L (23-31); Chloride 110 mmol/L (98-107); Estimated GFR-MDRD 38; Glucose 94 mg/dL (80-115); Phosphorus 2.8 mg/dL (2.3-4.7); Potassium 4.6 mmol/L (3.5-5.1); Sodium 142 mmol/L (136-145)
[2018-03-14] MEDS: Famotidine 20 MG TAB PO SCH ×2 (09:40→21:16)
[2018-03-14] MEDS: Gabapentin 300 MG CAP PO SCH ×3 (09:40→21:15)
[2018-03-14] MEDS: Aspirin 81 mg Enteric Coated Tablet PO SCH (09:40)
[2018-03-14] MEDS: Morphine ER 30 MG TAB PO SCH ×2 (09:41→21:15)
--- NOTE | 2018-03-14 10:51 | PDOC.PN ---
- Subjective Encounter Start Date: 03/14/18 Encounter Start Time: 09:30 Subjective: is more awake than yesterday -: is not using cpap at home, used it only for short time here last night - Objective Resuscitation Status - Order Detail: 03/11/18 11:40 Resuscitation Status Routine Resuscitation Status: FULL: Full Resuscitation MAR Reviewed: Yes Vital Signs & Weight: Vital Signs (12 hours) Temp Pulse Resp BP Pulse Ox Pulse Ox Pulse Ox 03/14/18 09:51 93 L 03/14/18 09:42 95 91 L 03/14/18 07:57 97.8 F 71 16 153/85 H 93 L 03/14/18 06:53 96 03/14/18 06:51 64 16 96 03/14/18 00:47 65 14 95 03/14/18 00:45 65 12 95 Pulse Ox 03/14/18 09:51 03/14/18 09:42 95 03/14/18 07:57 03/14/18 06:53 03/14/18 06:51 03/14/18 00:47 03/14/18 00:45 Weight Admit Weight 265 lb 13.92 oz Weight 265 lb 14.04 oz I&O: 03/13/18 03/14/18 03/15/18 06:59 06:59 06:59 Intake Total 2550 2140 Output Total 900 Balance 2550 1240 Result Diagrams: 03/12/18 11:55 03/14/18 07:09 Additional Labs: Accuchecks 03/14/18 03/13/18 03/13/18 04:11 19:05 15:47 POC Glucose 95 115 H 140 H Phys Exam - Physical Examination HEENT: PERRLA, moist MMs Neck: no JVD, supple Respiratory: no wheezing, no rales Cardiovascular: RRR, no significant murmur Gastrointestinal: soft, non-tender, positive bowel sounds Musculoskeletal: no edema, pulses present Neurological: non-focal, moves all 4 limbs Psychiatric: A&O x 3 Dx/Plan (1) EUGENE (acute kidney injury) Code(s): N17.9 - ACUTE KIDNEY FAILURE, UNSPECIFIED Status: Acute (2) DM type 2 (diabetes mellitus, type 2) Status: Chronic Qualifiers: Diabetes mellitus nursing home insulin use: without nursing home use Diabetes mellitus complication status: with unspecified complications Qualified Code(s) : E11.8 - Type 2 diabetes mellitus with unspecified complications (3) Chronic pain Code(s): G89.29 - OTHER CHRONIC PAIN Status: Chronic Qualifiers: Chronic pain type: chronic pain syndrome (4) Falls frequently Code(s): R29.6 - REPEATED FALLS Status: Chronic (5) Morbid obesity with BMI of 40.0-44.9, adult Code(s): E66.01 - MORBID (SEVERE) OBESITY DUE TO EXCESS CALORIES; Z68.41 - BODY MASS INDEX (BMI) 40.0-44.9, ADULT Status: Chronic (6) Acute respiratory failure with hypoxia and hypercapnia Code(s): J96.01 - ACUTE RESPIRATORY FAILURE WITH HYPOXIA; J96.02 - ACUTE RESPIRATORY FAILURE WITH HYPERCAPNIA Status: Acute Comment: likely due to sofiya (7) Sleep apnea Code(s): G47.30 - SLEEP APNEA, UNSPECIFIED Status: Acute Qualifiers: Sleep apnea type: unspecified type Qualified Code(s): G47.30 - Sleep apnea , unspecified - Plan has been diagnosed of sleep apnea, is noncompliant with cpap -: awaiting placement, may dc anytime, will need to wear cpap when asleep -: renal function is trending down to baseline -: no further diarrhea (not provided a sample yet) -: oob to chair and mobilize as tolerated * . on MS contin q12h, dasha HS prn. Review of Systems - Medications/Allergies Allergies/Adverse Reactions: Allergies Allergy/AdvReac Type Severity Reaction Status Date / Time cefaclor [From Ceclor] Allergy Verified 02/21/18 18:31 Cephalosporins Allergy Verified 02/21/18 18:31 iodine Allergy Verified 02/21/18 18:31 levofloxacin [From Levaquin] Allergy Verified 02/21/18 18:31 ofloxacin [From Floxin] Allergy Verified 02/21/18 18:31 Penicillins Allergy Verified 02/21/18 18:31 Sulfa (Sulfonamide Allergy Verified 02/21/18 18:31 Antibiotics) sulfamethoxazole Allergy Verified 02/21/18 18:31 [From Bactrim] trimethoprim [From Bactrim] Allergy Verified 02/21/18 18:31 Medications: Current Medications Acetaminophen (Tylenol) 650 mg PO Q4H PRN PRN Reason: Headache/Fever/Mild Pain (1-3) Last Admin: 03/12/18 08:35 Dose: 650 mg Albuterol/Ipratropium (Duoneb) 3 ml NEB [id number] [facility] Last Admin: 03/14/18 06:51 Dose: 3 ml Aspirin (Ecotrin) 81 mg PO DAILY [facility] Last Admin: 03/14/18 09:40 Dose: 81 mg Clonazepam (Klonopin) 1 mg PO HS PRN PRN Reason: Restlessness Famotidine (Pepcid) 20 mg PO BID [facility] Last Admin: 03/14/18 09:40 Dose: 20 mg Gabapentin (Neurontin) 300 mg PO TID [facility] Last Admin: 03/14/18 09:40 Dose: 300 mg Guaifenesin/Dextromethorphan (Robitussin Dm) 15 ml PO Q4H PRN PRN Reason: Cough Morphine Sulfate (Ms Contin) 30 mg PO Q12HR [facility] Last Admin: 03/14/18 09:41 Dose: 30 mg Sodium Chloride (Flush - Normal Saline) 10 ml IVF Q12HR [facility] Last Admin: 03/14/18 09:42 Dose: 10 ml Sodium Chloride (Flush - Normal Saline) 10 ml IVF PRN PRN PRN Reason: Saline Flush
[2018-03-14 11:51] LABS: Anion Gap 12 mmol/L (10-20)
--- NOTE | 2018-03-14 12:07 | PRG ---
DATE OF SERVICE: 03/14/2018 SUBJECTIVE: A 67-year-old lady, being seen for acute kidney injury. The patient denied any nausea, vomiting, or chest pain. OBJECTIVE: GENERAL: The patient is awake and alert. VITAL SIGNS: Afebrile, pulse 71, breathing 16, blood pressure . GENERAL APPEARANCE AND MENTAL STATUS: Fair. HEAD/NECK: Normocephalic. Atraumatic. EYES: EOMI. No deformity. EARS: Clear. No ulcers. NOSE: Intact. No lesions. MOUTH: Clear. No discharge. THROAT: Clear. No exudate. LUNGS: Clear. No crackles. CARDIAC: S1, S2. No rub. ABDOMEN: Benign. Bowel sounds positive. GENITALIA/RECTUM: Pablo absent. BACK/EXTREMITIES: Edema 0+. NEUROLOGICAL: Alert and motor intact. SKIN: LYMPHATICS: LABORATORY DATA: Hemoglobin creatinine 1.3. ASSESSMENT AND PLAN: 1. Acute kidney injury, resolved. 2. Hyperkalemia, stable. 3. Anemia, stable. I will sign off on this patient, please reconsult as needed. Job ID: [id number]
[2018-03-15 08:10] LABS: Anion Gap 9 mmol/L (10-20); BUN (Urea Nitrogen) 19 mg/dL (9.8-20.1); BUN/Creatinine Ratio 15.32; Calc. Creatinine Clearance 85 mL/min (70-130); Calcium 10.1 mg/dL (7.8-10.44); Carbon Dioxide 29 mmol/L (23-31); Chloride 110 mmol/L (98-107); Estimated GFR-MDRD 43; Glucose 83 mg/dL (80-115); Phosphorus 2.7 mg/dL (2.3-4.7); Potassium 4.5 mmol/L (3.5-5.1); Sodium 143 mmol/L (136-145)
[2018-03-15] MEDS: Aspirin 81 mg Enteric Coated Tablet PO SCH (09:43)
[2018-03-15] MEDS: Gabapentin 300 MG CAP PO SCH ×2 (09:43→15:41)
[2018-03-15] MEDS: Famotidine 20 MG TAB PO SCH (09:43)
[2018-03-15] MEDS: Morphine ER 30 MG TAB PO SCH (09:43)
--- NOTE | 2018-03-15 11:49 | PDOC.PN ---
- Subjective Encounter Start Date: 03/15/18 Encounter Start Time: 07:00 Subjective: awake, responds well to verbal stimuli -: is moving all extre, no jerking seen this am - Objective Resuscitation Status - Order Detail: 03/11/18 11:40 Resuscitation Status Routine Resuscitation Status: FULL: Full Resuscitation MAR Reviewed: Yes Vital Signs & Weight: Vital Signs (12 hours) Temp Pulse Resp BP BP Pulse Ox 03/15/18 11:19 98.0 F 70 16 143/84 H 96 03/15/18 08:00 98.3 F 68 16 159/75 H 94 L 03/15/18 07:41 94 L 03/15/18 06:59 67 16 97 03/15/18 00:45 12 Weight Admit Weight 265 lb 13.92 oz Weight 265 lb 14.04 oz I&O: 03/14/18 03/15/18 03/16/18 06:59 06:59 06:59 Intake Total 2140 1470 Output Total 900 Balance 1240 1470 Result Diagrams: 03/12/18 11:55 03/15/18 07:25 Additional Labs: Accuchecks 03/15/18 03/14/18 03/14/18 04:15 19:22 16:46 POC Glucose 102 79 83 Phys Exam - Physical Examination HEENT: PERRLA, moist MMs Neck: no JVD, supple Respiratory: no wheezing, no rales Cardiovascular: RRR, no significant murmur Gastrointestinal: soft, non-tender, positive bowel sounds Musculoskeletal: no edema, pulses present Neurological: non-focal, moves all 4 limbs Psychiatric: A&O x 3 Dx/Plan (1) EUGENE (acute kidney injury) Code(s): N17.9 - ACUTE KIDNEY FAILURE, UNSPECIFIED Status: Acute Comment: resolving (2) DM type 2 (diabetes mellitus, type 2) Status: Chronic Qualifiers: Diabetes mellitus skilled nursing insulin use: without long distance operator use Diabetes mellitus complication status: with unspecified complications Qualified Code(s) : E11.8 - Type 2 diabetes mellitus with unspecified complications (3) Chronic pain Code(s): G89.29 - OTHER CHRONIC PAIN Status: Chronic Qualifiers: Chronic pain type: chronic pain syndrome (4) Falls frequently Code(s): R29.6 - REPEATED FALLS Status: Chronic (5) Morbid obesity with BMI of 40.0-44.9, adult Code(s): E66.01 - MORBID (SEVERE) OBESITY DUE TO EXCESS CALORIES; Z68.41 - BODY MASS INDEX (BMI) 40.0-44.9, ADULT Status: Chronic (6) Acute respiratory failure with hypoxia and hypercapnia Code(s): J96.01 - ACUTE RESPIRATORY FAILURE WITH HYPOXIA; J96.02 - ACUTE RESPIRATORY FAILURE WITH HYPERCAPNIA Status: Acute Comment: likely due to sofiya (7) Sleep apnea Code(s): G47.30 - SLEEP APNEA, UNSPECIFIED Status: Acute Qualifiers: Sleep apnea type: unspecified type Qualified Code(s): G47.30 - Sleep apnea , unspecified - Plan renal function is almost at baseline -: awaiting placement, ms contin bid, klonopin HS, gabapentin -: needs to wear cpap when asleep, is noncompliant -: outpt appt with her pulm -: needs to amb more with PT * . Review of Systems - Medications/Allergies Allergies/Adverse Reactions: Allergies Allergy/AdvReac Type Severity Reaction Status Date / Time cefaclor [From Ceclor] Allergy Verified 02/21/18 18:31 Cephalosporins Allergy Verified 02/21/18 18:31 iodine Allergy Verified 02/21/18 18:31 levofloxacin [From Levaquin] Allergy Verified 02/21/18 18:31 ofloxacin [From Floxin] Allergy Verified 02/21/18 18:31 Penicillins Allergy Verified 02/21/18 18:31 Sulfa (Sulfonamide Allergy Verified 02/21/18 18:31 Antibiotics) sulfamethoxazole Allergy Verified 02/21/18 18:31 [From Bactrim] trimethoprim [From Bactrim] Allergy Verified 02/21/18 18:31 Medications: Current Medications Acetaminophen (Tylenol) 650 mg PO Q4H PRN PRN Reason: Headache/Fever/Mild Pain (1-3) Last Admin: 03/12/18 08:35 Dose: 650 mg Albuterol/Ipratropium (Duoneb) 3 ml NEB [id number] [facility] Last Admin: 03/15/18 06:59 Dose: 3 ml Aspirin (Ecotrin) 81 mg PO DAILY [facility] Last Admin: 03/15/18 09:43 Dose: 81 mg Clonazepam (Klonopin) 1 mg PO HS PRN PRN Reason: Restlessness Famotidine (Pepcid) 20 mg PO BID [facility] Last Admin: 03/15/18 09:43 Dose: 20 mg Gabapentin (Neurontin) 300 mg PO TID [facility] Last Admin: 03/15/18 09:43 Dose: 300 mg Guaifenesin/Dextromethorphan (Robitussin Dm) 15 ml PO Q4H PRN PRN Reason: Cough Morphine Sulfate (Ms Contin) 30 mg PO Q12HR [facility] Last Admin: 03/15/18 09:43 Dose: 30 mg Sodium Chloride (Flush - Normal Saline) 10 ml IVF Q12HR [facility] Last Admin: 03/15/18 09:51 Dose: 10 ml Sodium Chloride (Flush - Normal Saline) 10 ml IVF PRN PRN PRN Reason: Saline Flush
[2018-03-15 15:31] VITALS: BP 138/83; TEMP 97.8
--- NOTE | 2018-03-16 08:57 | DIS ---
DATE OF ADMISSION: 03/11/2018 DATE OF DISCHARGE: 03/15/2018 DISCHARGE DISPOSITION: To [facility]. PRIMARY DISCHARGE DIAGNOSES: 1. Acute kidney injury, resolving. 2. Acute respiratory failure with hypoxia and hypercapnia likely due to underlying obstructive sleep apnea plus narcotic use in addition to obesity. SECONDARY DISCHARGE DIAGNOSES: 1. Diabetes mellitus, type 2. 2. Chronic pain syndrome. 3. Frequent falls due to severe osteoarthritis of both knees. 4. Morbid obesity, likely sleep apnea. PROCEDURES DONE DURING HOSPITALIZATION: A CT abdomen and pelvis without contrast done showed small hiatal hernia, thickening of the descending and sigmoid colon, probably due to underdistention. Chest x-ray showed cardiomegaly with pulmonary vascular congestion. No evidence of pneumonia. CT brain showed no acute intracranial abnormalities. Urine culture grew E coli, which was more than 100, 000 colony-forming units per mL, resistant to quinolones but sensitive to all other antibiotics. Respiratory virus panel PCR was negative. Blood cultures x2, no growth. H and H 11 and 38, platelet count 256. Blood gas showed a pH of 7.24, pCO2 of 66, pO2 of 67, discharge creatinine 1.24. Admitting creatinine was 3.58. Troponin x1 was negative. DISCHARGE MEDICATIONS: 1. Klonopin 0.5 mg p.o. at bedtime p.r.n. 2. Gabapentin 300 mg p.o. 3 times daily. 3. MS Contin 30 mg p.o. twice daily. 4. DuoNeb q.6 hourly. 5. Aspirin 81 mg p.o. daily. ALLERGIES: THE PATIENT IS ALLERGIC TO MULTIPLE ANTIBIOTICS INCLUDING CEPHALOSPORINS, QUINOLONES, PENICILLIN, SULFA, AND IODINE. SHE IS ALSO ALLERGIC TO OFLOXACIN. INPATIENT CONSULT: Dr. Key for Nephrology. 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 She also needs to see her primary care physician in 2 weeks. BRIEF COURSE DURING HOSPITALIZATION: The patient initially came to ER with complaints of not feeling well. She had viral infection for nearly 10 days or so prior to arrival. She felt good for the last 2 days, but then developed severe nausea, vomiting, and shaking after eating a slice of pizza. Her creatinine was 3.5 on admission. The patient was gently hydrated with acute kidney injury and [id number] dehydration. She has responded well to hydration. The patient had acute encephalopathy due to CO2 retention with her being noncompliant with CPAP. She also had mild jerking movements after her Klonopin was discontinued. She was placed on a reduced dose of MS Contin and Klonopin was continued at bedtime p.r.n. She has responded to these measures with no further myoclonic jerks noted. The patient does not like her CPAP mask, which makes her cheeks and face flutter. She was counseled with regard to wearing the same due to respiratory acidosis plus the patient's use of narcotics, obesity, and Klonopin, which was making it worse. She has deconditioning and has severe osteoarthritis of the knees as well. She is being accepted to [facility] and will be shortly discharged there. A total of 35 minutes was spent on discharge plan. Please see a [id number] documentation on [facility] for the day of discharge. Job ID: [id number] MTDD
== END 2018-03-15 17:20 | DRG 682 ==
LOC: ERS 04:30 → ERHOLD 06:30 → T4-B 15:44
PROVIDERS: ADMIT Internal Medicine; ATTEND Internal Medicine
DX: N17.9 Acute kidney failure, unspecified (principal); J96.01 Acute respiratory failure with hypoxia; J96.02 Acute respiratory failure with hypercapnia; Z68.41 Body mass index [BMI] 40.0-44.9, adult; N39.0 Urinary tract infection, site not specified; E87.2 Acidosis; I12.9 Hypertensive chronic kidney disease with stage 1 through stage 4 chronic kidney disease, or unspecified chronic kidney disease; E11.22 Type 2 diabetes mellitus with diabetic chronic kidney disease; N18.2 Chronic kidney disease, stage 2 (mild); G47.33 Obstructive sleep apnea (adult) (pediatric); E66.01 Morbid (severe) obesity due to excess calories; M17.0 Bilateral primary osteoarthritis of knee; G89.4 Chronic pain syndrome; T40.605A Adverse effect of unspecified narcotics, initial encounter; D86.9 Sarcoidosis, unspecified; E87.5 Hyperkalemia; D63.1 Anemia in chronic kidney disease; Z79.82 Long term (current) use of aspirin; R29.6 Repeated falls; Z91.19 Patient's noncompliance with other medical treatment and regimen; Z88.0 Allergy status to penicillin; Z88.2 Allergy status to sulfonamides; Z88.8 Allergy status to other drugs, medicaments and biological substances
CPT/HCPCS: 36415; 36416; 70450; 71045; 74176; 80053; 80069; 81003; 81015; 82570; 82805; 83690; 84300; 84484; 84540; 85025; 87040; 87077; 87086; 87186; 87633; 87804; 93005; 94640; 94660; 94760; 96361; 96365; J1650; J7620

== ENCOUNTER 2018-05-11 13:55 | Outpatient (CLI) | payer MEDICARE ==
--- NOTE | 2018-05-16 18:25 | MMO ---
Bilateral MAMMO Bilat Screen [facility]. CLINICAL HISTORY: Patient is 68 years old and is seen for screening. The patient has the following The patient has no personal history of cancer. The patient has a history of left Excisional Biopsy in 1974 - benign and left Excisional Biopsy in 1972 - benign. VIEWS: The views performed were: bilateral craniocaudal with tomosynthesis and bilateral mediolateral oblique with tomosynthesis. FILMS COMPARED: The present examination has been compared to prior imaging studies performed at [facility] on 03/06/2014 and 04/20/2017, and at [facility] on 11/06/2007, 11/29/2007 and 07/28/2009. MAMMOGRAM FINDINGS: The breasts are heterogeneously dense, which could obscure a lesion on mammography. There are no suspicious masses, suspicious calcifications, or new areas of architectural distortion. IMPRESSION: THERE IS NO MAMMOGRAPHIC EVIDENCE OF MALIGNANCY. A ROUTINE FOLLOW-UP MAMMOGRAM IN 1 YEAR IS RECOMMENDED. THE RESULTS OF THIS EXAM WERE SENT TO THE PATIENT. ACR BI-RADS Category 1 - Negative MAMMOGRAPHY NOTE: 1. A negative mammogram report should not delay a biopsy if a dominant of clinically suspicious mass is present. 2. Approximately 10% to 15% of breast cancers are not detected by mammography. 3. Adenosis and dense breasts may obscure an underlying neoplasm.
== END 2018-05-11 13:56 | disposition home or self-care (01) ==
LOC: BICMAMMO 13:55
PROVIDERS: ATTEND Internal Medicine
DX: Z12.31 Encounter for screening mammogram for malignant neoplasm of breast (principal)
CPT/HCPCS: 77063; 77067